=== PATIENT | male | born 1950 | race Caucasian/White ===

== ENCOUNTER 2021-04-18 10:45 | Emergency (ER) | payer MEDICAID, MEDICARE ==
[2021-04-18] MEDS ORDERED: predniSONE 20 MG TABLET PO STA (11:14)
--- NOTE | 2021-04-18 11:21 | ED Physician Documentation ---
PD HPI HEADACHE - Stated complaint Stated Complaint: SEVERE HEADACHE - Chief complaint Chief Complaint: Neuro - Additional information Additional information: Patient is 70-year-old male presenting to the emergency department with report of headache. Endorses for intermittent episodes of stabbing pain behind his left eye that has been ongoing for the last week. Reports has had several episodes of pain, each lasting approximately 30 minutes in length. Denies excessive tearing or lacrimation from the eye. Reports has been using [id number] medications such as aspirin with some symptomatic relief. Denies any fever, neck stiffness, head injury, visual disturbance, focal or lateralizing neurologic symptoms. . Reports a history of migraines in childhood and states that he was diagnosed with cluster headaches when he was much younger but it is been several years since he has been troubled by these issues. States has been using oral and nasal decongestants as well because he was concerned that it could be a sinus infection. Otherwise reports that he is currently asymptomatic Review of Systems Ten Systems: 10 systems reviewed and negative Constitutional: denies: Fever Eyes: denies: Loss of vision, Decreased vision, Discharge, Irritation Ears: denies: Loss of hearing, Ear pain, Tinnitus/ringing, Foreign body Nose: denies: Rhinorrhea / runny nose, Foreign Body Throat: denies: Dental pain / toothache, Oral lesions / sores Cardiac: denies: Chest pain / pressure Respiratory: denies: Dyspnea GI: denies: Abdominal Pain : denies: Dysuria Skin: denies: Rash Musculoskeletal: denies: Neck pain Neurologic: reports: Headache. denies: Generalized weakness, Focal weakness, Numbness, Difficulty speaking, Near syncope, Syncope, Seizure, Confused, Altered mental status, Unresponsive, Head injury Psychiatric: denies: Depressed PD PAST MEDICAL HISTORY - Past Medical History Past Medical History: Yes Cardiovascular: Pulmonary embolism Respiratory: None GI: None : Kidney stones HEENT: None Psych: None Musculoskeletal: None Derm: None - Past Surgical History Past Surgical History: No - Present Medications Home Medications: Ambulatory Orders Medication Instructions Recorded Confirmed ZOLMitriptan [Zolmitriptan] 1 spray NS PRN PRN #1 spray 04/18/21 methylPREDNISolone [Medrol] 4 mg PO DAILY #1 tab 04/18/21 - Allergies Allergies/Adverse Reactions: Allergies Allergy/AdvReac Type Severity Reaction Status Date / Time No Known Drug Allergies Allergy Verified 04/18/21 10:50 - Social History Does the pt smoke?: No Smoking Status: Never smoker Does the pt drink ETOH?: Yes Does the pt have substance abuse?: Yes - Immunizations Immunizations are current?: Yes - POLST Patient has POLST: No PD ED PE NORMAL - Vitals Vital signs reviewed: Yes - General General: Alert and oriented X 3 - HEENT HEENT: Atraumatic, PERRL, EOMI, Ears normal, Moist mucous membranes, Pharynx benign - Neck Neck: No JVD - Cardiac Cardiac: RRR - Respiratory Respiratory: No respiratory distress - Abdomen Abdomen: Normal bowel sounds - Male Male : Deferred - Rectal Rectal: Deferred - Extremities Extremities: No deformity - Neuro Neuro: Alert and oriented X 3 - Psych Psych: Normal mood Results - Vitals Vitals: Vital Signs - 24 hr 04/18/21 04/18/21 10:51 11:46 Temperature 36.5 C Heart Rate 64 80 Respiratory 18 16 Rate Blood Pressure 149/95 H 145/79 H O2 Saturation 99 99 Oxygen O2 Source Room air PD MEDICAL DECISION MAKING - ED course Complexity details: d/w patient ED course: Patient is 70-year-old male presenting to the emergency department with 1 week history of intermittent left-sided headache. Endorses for headache behind his left eye happening intermittently with severe pain lasting approximately 20 to 30 minutes and happening several times a day. Patient did endorse a very distant history of migraine headache disorder and cluster headaches. Reported that he had been using nasal sprays and oral and nasal decongestants at home without relief, initially believing that his symptoms were secondary to a sinus infection. He arrived to the emergency department afebrile, hemodynamically stable and completely asymptomatic. He had a nonfocal nonlateralizing neurologic exam and no sinus tenderness to palpation. The remainder of his HEENT exam was otherwise benign. His presentation is most consistent with recurrent cluster headaches. I did have a long and detailed discussion with the patient about this condition. We discussed a course of prednisone as a p reventative medication as well as intranasal triptans to help abort acute episodes of pain. I also encouraged him to establish himself with a primary care doctor for appropriate follow-up. He verbalized understanding of these things and was agreeable to this plan. Otherwise explicit and clear return precautions were given prior to discharge. Departure - Departure Disposition: Home, Self Care Clinical Impression: Cluster headaches Condition: Fair Follow-Up: Bettina Ramírez MD [Primary Care Provider] - Prescriptions: methylPREDNISolone [Medrol] 4 mg PO DAILY #1 tab ZOLMitriptan [Zolmitriptan] 1 spray NS PRN PRN #1 spray PRN Reason: Headache Comments: For allowing us to care for you today at [facility]. Your prescriptions were sent to [facility]. Is follow-up with Dr. Ramírez as soon as possible. If it anytime you have any new or worsening symptoms please not hesitate to return to the emergency department. Discharge Date/Time: 04/18/21 11:46
[2021-04-18 11:46] VITALS: BP 145/79
== END 2021-04-18 11:46 | disposition home or self-care (01) ==
LOC: ED 10:45
DX: G44.009 Cluster headache syndrome, unspecified, not intractable (principal)
CPT/HCPCS: 99282; 99283; J7512

== ENCOUNTER 2022-07-21 11:22 | Outpatient (CLI) | payer SELFPAY | END 2022-07-21 11:23 | disposition critical access hospital (66) | LOC: EMS 11:22 | DX: R10.13 Epigastric pain (principal); R10.32 Left lower quadrant pain; R11.2 Nausea with vomiting, unspecified | CPT/HCPCS: A0425; A0427 ==

== ENCOUNTER 2022-07-21 11:55 | Emergency (ER) | payer SELFPAY ==
--- NOTE | 2022-07-21 12:04 | ED Physician Documentation ---
History of Present Illness - Stated complaint Stated Complaint: ABD PX - Additonal information Additional information: 71-year-old male is brought to the emergency department for evaluation of colicky and abdominal pain that has been present every morning for the last 3 mornings. Patient reports that he gets up about 6 AM and feels as though he is going to have a bowel movement but does not and instead he gets very nauseated and has dry heaves. Symptoms last about 3 hours before dissipating. They occurred again this morning thus he called 911. At the time of evaluation in the ER he is free of abdominal pain. He is simply requesting to urinate. He denies taking any pertinent medications. No past hospitalizations or surgeries. The patient is quite nimco with the staff at this time insisting that he needs to urinate. Patient denies melena or hematochezia. No history of previous colonoscopy. No fevers. No headaches. No chest pain or shortness of air. He denies night sweats or unintentional weight loss. Denies alcohol use but is a daily cannabis smoker. pt reports to me that if his labs look "okay" he would simply like a nausea medication. He does not want a CT scan. States to me; "what would I do with it anyway. if I have cancer, I won't treat it." Review of Systems Constitutional: denies: Fever, Chills Throat: reports: Reviewed and negative Cardiac: reports: Reviewed and negative Respiratory: reports: Reviewed and negative GI: reports: Nausea. denies: Vomiting, Constipation, Hematemesis, Bloody / jamie k stool : reports: Reviewed and negative Skin: reports: Reviewed and negative Musculoskeletal: reports: Reviewed and negative PD PAST MEDICAL HISTORY - Past Medical History Cardiovascular: Pulmonary embolism Respiratory: None GI: None : Kidney stones HEENT: None Psych: None Musculoskeletal: None Derm: None - Past Surgical History Past Surgical History: No - Present Medications Home Medications: Ambulatory Orders Medication Instructions Recorded Confirmed ZOLMitriptan [Zolmitriptan] 1 spray NS PRN PRN #1 spray 04/18/21 methylPREDNISolone [Medrol] 4 mg PO DAILY #1 tab 04/18/21 Cefpodoxime Proxetil [Vantin] 100 mg PO Q12H #14 tablet 07/21/22 Tamsulosin HCl [Flomax] 0.4 mg PO DAILY #30 cap 07/21/22 - Allergies Allergies/Adverse Reactions: Allergies Allergy/AdvReac Type Severity Reaction Status Date / Time No Known Drug Allergies Allergy Verified 04/18/21 10:50 - Social History Does the pt smoke?: No Smoking Status: Never smoker Does the pt drink ETOH?: Yes Does the pt have substance abuse?: Yes - Immunizations Immunizations are current?: Yes - POLST Patient has POLST: No PD ED PE NORMAL - General General: Alert and oriented X 3, No acute distress, Well developed/nourished - HEENT HEENT: Atraumatic, Moist mucous membranes - Neck Neck: Supple, no meningeal sign, No adenopathy - Cardiac Cardiac: RRR, No murmur, No gallop - Respiratory Respiratory: No respiratory distress, Clear bilaterally - Abdomen Abdomen: Normal bowel sounds, Soft - Back Back: No CVA TTP, No spinal TTP - Derm Derm: Normal color, Warm and dry, No rash - Extremities Extremities: No deformity, No tenderness to palpate, Normal ROM s pain - Neuro Neuro: Alert and oriented X 3, community engagement representative 2-12 intact Eye Opening: Spontaneous Motor: Obeys Commands Verbal: Oriented GCS Score: 15 Results - Vitals Vitals: Vital Signs - 24 hr 07/21/22 12:10 Temperature 36.9 C Heart Rate 59 L Respiratory 18 Rate Blood Pressure 134/83 H O2 Saturation 98 Oxygen O2 Source Room air - Labs Labs: Laboratory Tests 07/21/22 07/21/22 07/21/22 12:07 12:09 12:09 WBC 12.2 H RBC 4.70 Hgb 15.1 Hct 44.7 MCV 95.1 H MCH 32.1 H MCHC 33.8 RDW 13.4 Plt Count 184 MPV 9.7 Neut # (Auto) 10.8 H Lymph # (Auto) 0.[address] [facility] # (Auto) 0.5 Eos # (Auto) 0.0 Baso # (Auto) 0.0 Absolute Nucleated RBC 0.00 Nucleated RBC % 0.0 Sodium 140 Potassium 3.4 L Chloride 109 Carbon Dioxide 24 Anion Gap 7.0 BUN 16 Creatinine 0.9 Estimated GFR (MDRD) 84 L Glucose 121 H Calcium 9.2 Total Bilirubin 0.8 AST 23 ALT 16 Alkaline Phosphatase 45 Total Protein 7.5 Albumin 4.5 Globulin 3.0 Albumin/Globulin Ratio 1.5 Lipase 45 Urine Color BROWN Urine Clarity HAZY Urine pH 6.0 Ur Specific [place] 1.020 Urine Protein 30 H Urine Glucose (UA) NEGATIVE Urine Ketones TRACE Urine Occult Blood LARGE H Urine Nitrite NEGATIVE Urine Bilirubin NEGATIVE Urine Urobilinogen 0.2 (NORMAL) Ur Leukocyte Esterase SMALL H Urine RBC TNTC H Urine WBC 6-10 H Ur Squamous Epith Cells FEW Squamous Urine Bacteria Moderate H Ur Microscopic Review INDICATED Urine Culture Comments INDICATED - Rads (name of study) CT abdpelv Relevant Findings:: Final report received (Objective stone within the proximal right ureter measuring 5 mm. Additional lower pole nonobstructive right nephrolithiasis) PD Medical Decision Making - ED course Complexity details: reviewed results, re-evaluated patient, considered differential, d/w patient, d/w framing consultant ED course: 71-year-old male came to the emergency department via EMS for evaluation of colicky abdominal pain has been present each morning when he wakes up. Typically last about 3 hours and he has some nausea but no vomiting. Denies changes in his bowel habits. Denies urinary symptoms. Admits he has not been to a doctor in quite some time but denies a history of diabetes. He does have a remote history of renal colic many many years ago. On presentation to the emergency department he is alert and very well-appearing. No abdominal tenderness was elicited. CBC and electrolytes shows of very mild leukocytosis with white count of 12.2 thousand. His electrolytes show no acute worrisome abnormalities. His urinalysis however is consistent with acute infection as well as significant hematuria. Given this finding a CT of the abdomen with contrast was completed. As interpreted by the radiologist it does show a 5 mm right proximal ureter stone without findings of obstruction. No findings suggest pyelonephritis. Given the findings of acute cystitis here in the ER I did mention patient 1 g of ceftriaxone. With the findings of proximal ureter stone I also administered a dose of Flomax. Subsequently I did consult with [facility] urologist Dr. rush Who feels the patient is safe for discharge home with outpatient follow-up. He would recommend a week of antibiotics as well as Flomax. I did discuss the laboratory and CT imaging findings with the patient and his friend at the bedside. He will follow-up with a local walk-in clinic to obtain the appropriate referral to urology. Prescriptions for Flomax and Vantin were sent to the [facility] in [place]. The usual emergent return precautions were discussed Departure - Departure Disposition: 01 Home, Self Care Clinical Impression: Right ureteral stone Acute cystitis Qualifiers: Hematuria presence: with hematuria Qualified Code(s): N30.01 - Acute cystitis with hematuria Condition: Stable Record reviewed to determine appropriate education?: Yes Instructions: ED Stone Renal W Colic Follow-Up: [facility] [Provider Group] Prescriptions: Tamsulosin HCl [Flomax] 0.4 mg PO DAILY #30 cap Cefpodoxime Proxetil [Vantin] 100 mg PO Q12H #14 tablet Comments: Pelon you came to the emergency department today because you have been having about 3 days of colicky abdominal pain when you wake up each morning. Today in the emergency department your urine showed a fair amount of blood as well as signs of infection. The rest of your labs did not show any worrisome abnormalities. We did do a CT of your abdomen and do see that you have a 5 mm right ureter stone. This is the area of the ureter as it exits the kidney. I am sending a prescription for medication called Flomax to the [facility] in [place]. Please take this each day. Use it cautiously it may make you somewhat lightheaded and dizzy. The goal of this medication is to help dilate the ureter to allow the stone to pass more easily. Because you do have a urinary tract infection you also need to fill the prescription for the antibiotics and take twice daily as directed for the next week. Please follow closely with a primary care doctor. You should obtain referral to a local urologist. I would recommend [facility] urology depart ment. Any of the local walk-in clinics can assist you with making the referrals. If despite taking these medications you find you are having worsening symptoms, develop any fevers, have suddenly severe or different abdominal pain, have uncontrolled vomiting please return immediately to the ER. In general kidney pain and ureter pain is best treated by alternating doses of ibuprofen with Tylenol. Please take 600 mg of Motrin with food 2-3 times a day or alternate with 500 mg of Tylenol for any discomfort.
[2022-07-21 12:19] LABS: BASOPHILS % (AUTO) 0.2 %; EOSINOPHILS % (AUTO) 0.1 %; HCT - HEMATOCRIT 44.7 % (42.0-52.0); HGB - HEMOGLOBIN 15.1 g/dL (14.0-18.0); LYMPHOCYTES # (AUTO) 0.9 10^3/uL (1.5-3.5); LYMPHOCYTES % (AUTO) 7.5 %; MEAN CORPUSCULAR HEMOGLOBIN 32.1 pg (27.0-31.0); MEAN CORPUSCULAR HGB CONC 33.8 g/dL (32.0-36.0); MEAN CORPUSCULAR VOLUME 95.1 fL (80.0-94.0); MEAN PLATELET VOLUME 9.7 fL (7.4-11.4); MONOCYTES # (AUTO) 0.5 10^3/uL (0.0-1.0); MONOCYTES % (AUTO) 3.8 %; NEUTROPHILS # (AUTO) 10.8 10^3/uL (1.5-6.6); PLT - PLATELET COUNT 184 10^3/uL (130-450); RED CELL DISTRIBUTION WIDTH 13.4 % (12.0-15.0); WHITE BLOOD COUNT 12.2 x10^3/uL (4.8-10.8)
[2022-07-21 12:22] LABS: BILIRUBIN,URINE NEGATIVE (NEGATIVE); GLUCOSE, URINE (UA) NEGATIVE (NEGATIVE); KETONES,URINE (UA) TRACE mg/dL (NEGATIVE); LEUKOCYTE ESTERASE, URINE SMALL (NEGATIVE); NITRITE,URINE NEGATIVE (NEGATIVE); OCCULT BLOOD,URINE LARGE (NEGATIVE); PROTEIN,URINE 30 mg/dL (NEGATIVE); UROBILINOGEN,URINE 0.2 (NORMAL) E.U./dL (NORMAL)
[2022-07-21 12:23] LABS: CLARITY,URINE HAZY (CLEAR)
[2022-07-21 12:28] LABS: ALBUMIN 4.5 g/dL (3.2-5.5); ALBUMIN/GLOBULIN RATIO 1.5 (1.0-2.2); BILIRUBIN,TOTAL 0.8 mg/dL (0.2-1.0); CALCIUM 9.2 mg/dL (8.5-10.3); CREATININE 0.9 mg/dL (0.6-1.2); POTASSIUM 3.4 mmol/L (3.5-5.0); TOTAL PROTEIN 7.5 g/dL (6.7-8.2)
[2022-07-21 12:30] LABS: BACTERIA,URINE Moderate /HPF (None Seen); RBC,URINE TNTC /HPF (0-5); SQUAMOUS EPITHELIAL CELL,UR FEW Squamous (<= Few)
[2022-07-21] MEDS ORDERED: iohexoL-300 100 ML VIAL ONE (12:49)
[2022-07-21] MEDS ORDERED: iohexoL-300 100 ML VIAL IVP ONE (13:20)
[2022-07-21] MEDS ORDERED: LIDOCAINE 1% 2 ML VIAL MC ONE (13:34)
[2022-07-21] MEDS ORDERED: cefTRIAXone 500 MG VIAL IVP STA (13:34)
--- NOTE | 2022-07-21 13:46 | CT Report ---
PROCEDURE: ABDOMEN/PELVIS W INDICATIONS: hematuria; periumbilical pain/cramping CONTRAST: 100ml omni 300 TECHNIQUE: After the administration of IV contrast, 5 mm thick sections acquired from the diaphragms to the symp hysis. 5 mm thick coronal and sagittal reformats were acquired. For radiation dose reduction, the f ollowing was used: automated exposure control, adjustment of mA and/or kV according to patient size. COMPARISON: None. FINDINGS: Image quality: Excellent. ABDOMEN: Lung bases: Lung bases are clear. Heart size is normal. Solid organs: Liver and spleen are normal in size and enhancement. Gallbladder is normal Biliary s ystem is non dilated. Pancreas enhances normally. No adrenal nodules. There is right-sided hydronephrosis with periureteral fat stranding with a an obstructive 5 mm stone in the proximal ureter. Additional obstructing stone within the inferior pole of the kidney measuring 4 mm. Mean density of the stone within the right ureter is 320 Hounsfield units. Peritoneum and bowel: Bowel loops demonstrate normal wall thickness and caliber. No free fluid or a ir. Scattered colonic diverticula. Nodes and vessels: No retroperitoneal or mesenteric adenopathy by size criteria. Aorta and inferior vena cava are normal in size. Miscellaneous: No ventral hernias. PELVIS: Genitourinary: Bladder wall thickness is normal. Coarse prostatic calcifications. Miscellaneous: No inguinal hernias or adenopathy. Bones: No suspicious bony lesions. No vertebral body compression fractures. Osteoarthritic degener ative changes. IMPRESSION: 1.Objective stone within the proximal right ureter measuring 5 mm. 2.Additional lower pole nonobstructive right nephrolithiasis. Reviewed by: Juan Kim MD on 07/21/2022 12:45 PM AKDT Approved by: Juan Kim MD on 07/21/2022 12:45 PM AKDT Station ID: [id number]
[2022-07-21] MEDS ORDERED: cefTRIAXone 1 GM VIAL IVP STA (13:47)
[2022-07-21] MEDS ORDERED: TAMSULOSIN 0.4 MG CAPSULE PO STA (14:05)
[2022-07-21 14:38] VITALS: BP 147/107
== END 2022-07-21 14:38 | disposition home or self-care (01) ==
LOC: EDUNIT# → ED 11:55
DX: N20.1 Calculus of ureter (principal); N30.01 Acute cystitis with hematuria
CPT/HCPCS: 36415; 74177; 80053; 81001; 83690; 85025; 87086; 96374; 99284; A9270; Q9967; 81003

== ENCOUNTER 2022-08-04 06:54 | Emergency (ER) | payer SELFPAY ==
--- NOTE | 2022-08-04 07:07 | ED Physician Documentation ---
PD HPI ABD PAIN - Stated complaint Stated Complaint: SEVERE ABD PX, SHAKES, VOMIT - Chief complaint Chief Complaint: Abd Pain - History obtained from History obtained from: Patient - History of Present Illness Timing - onset: How many weeks ago (2) Timing - duration: Weeks (2) Timing - details: Abrupt onset, Still present (had been milder but became worse again last night /this morning.), Waxing and waning Quality: Cramping, Aching, Pain Location: RLQ Radiation: Right flank Improved by: No: Laying still, Position Worsened by: No: Moving, Breathing, Position Associated symptoms: Nausea, Vomiting, Loss of appetite. No: Fever, Diarrhea, Constipation, Dysuria Similar symptoms before: Diagnosis (seen 2 weeks ago for similar and Dx with right proximal urteral stone 5 mm. Treated with tasmulosin and nsaids. Had possible UTI with it as well. rx with antibiotic too.) Recently seen: Emergency Dept Review of Systems Constitutional: denies: Fever, Chills GI: reports: Abdominal Pain, Nausea, Vomiting (when pain is bad like this morning.). denies: Constipation, Diarrhea : denies: Dysuria, Frequency Musculoskeletal: reports: Back pain PD PAST MEDICAL HISTORY - Past Medical History Cardiovascular: Pulmonary embolism Respiratory: None GI: None : Kidney stones HEENT: None Psych: None Musculoskeletal: None Derm: None - Past Surgical History Past Surgical History: No - Present Medications Home Medications: Ambulatory Orders Medication Instructions Recorded Confirmed ZOLMitriptan [Zolmitriptan] 1 spray NS PRN PRN #1 spray 04/18/21 methylPREDNISolone [Medrol] 4 mg PO DAILY #1 tab 04/18/21 Cefpodoxime Proxetil [Vantin] 100 mg PO Q12H #14 tablet 07/21/22 Tamsulosin HCl [Flomax] 0.4 mg PO DAILY #30 cap 07/21/22 Meloxicam [Mobic] 7.5 mg PO BID 10 Days #20 tablet 08/04/22 Ondansetron Odt [Zofran] 4 mg TL Q6H PRN #10 tablet 08/04/22 Oxycodone HCl/Acetaminophen 1 each PO Q6H PRN #20 tablet 08/04/22 [Percocet 5-325 mg Tablet] Oxycodone HCl/Acetaminophen 1 each PO Q6H PRN #20 tablet 08/04/22 [Percocet 5-325 mg Tablet] Tamsulosin [Flomax] 0.4 mg PO DAILY #15 cap 08/04/22 - Allergies Allergies/Adverse Reactions: Allergies Allergy/AdvReac Type Severity Reaction Status Date / Time No Known Drug Allergies Allergy Verified 04/18/21 10:50 - Social History Does the pt smoke?: No Smoking Status: Never smoker Does the pt drink ETOH?: Yes Does the pt have substance abuse?: Yes - Immunizations Immunizations are current?: Yes - POLST Patient has POLST: No PD ED PE NORMAL - Vitals Vital signs reviewed: Yes - General General: Alert and oriented X 3, Well developed/nourished, Other (appears in significant pain. ) - Cardiac Cardiac: RRR, No murmur - Respiratory Respiratory: Clear bilaterally - Abdomen Abdomen: Normal bowel sounds, Soft, Non tender, Non distended - Male Male : Deferred - Back Back: Other (moderate right cva tenderness. ) - Derm Derm: Normal color, Warm and dry - Extremities Extremities: Normal ROM s pain, No edema, No calf tenderness / cord - Neuro Neuro: No motor deficit, No sensory deficit Results - Vitals Vitals: Vital Signs - 24 hr 08/04/22 08/04/22 08/04/22 06:59 07:34 08:45 Temperature 36.8 C Heart Rate 77 56 L 60 Respiratory 18 11 L 16 Rate Blood Pressure 151/70 H 139/80 H 133/82 H O2 Saturation 98 97 97 08/04/22 09:36 Temperature 36.7 C Heart Rate 78 Respiratory 16 Rate Blood Pressure 136/77 H O2 Saturation 100 Oxygen O2 Source Room air - Labs Labs: Laboratory Tests 08/04/22 08/04/22 08/04/22 07:15 07:15 08:15 WBC 15.0 H RBC 4.79 Hgb 15.8 Hct 45.5 MCV 95.0 H MCH 33.0 H MCHC 34.7 RDW 13.9 Plt Count 217 MPV 9.8 Neut # (Auto) 12.8 H Lymph # (Auto) 1.3 L [place] # (Auto) 0.8 Eos # (Auto) 0.0 Baso # (Auto) 0.1 Absolute Nucleated RBC 0.00 Nucleated RBC % 0.0 Sodium 140 Potassium 4.0 Chloride 109 Carbon Dioxide 20 L Anion Gap 11.0 BUN 20 Creatinine 1.3 H Estimated GFR (MDRD) 55 L Glucose 121 H Calcium 10.2 Total Bilirubin 1.0 AST 29 ALT 15 Alkaline Phosphatase 47 Total Protein 7.7 Albumin 4.6 Globulin 3.1 Albumin/Globulin Ratio 1.5 Lipase 36 Urine Color YELLOW Urine Clarity CLEAR Urine pH 5.0 Ur Specific [place] >=1.030 H Urine Protein 30 H Urine Glucose (UA) NEGATIVE Urine Ketones 15 H Urine Occult Blood LARGE H Urine Nitrite NEGATIVE Urine Bilirubin NEGATIVE Urine Urobilinogen 0.2 (NORMAL) Ur Leukocyte Esterase NEGATIVE Urine RBC 11-25 H Urine WBC 6-10 H Ur Squamous Epith Cells RARE Squamous Urine Crystals 11-25 Ca Oxalate Urine Bacteria None Seen Ur Microscopic Review INDICATED Urine Culture Comments NOT INDICATED - Rads (name of study) abd/pelvic CT Relevant Findings:: Prelim report reviewed, EMP independent interpretation of test (the 5 mmstone has moved few cms down ureter. still midway. Some hydronephrosis. ), See rad report PD Medical Decision Making - ED course Complexity details: reviewed old records (prior ER visit. I looked at the culture result from urine at last visit and was mixed dami, so was not a true uTI. ), reviewed results, considered differential, d/w patient Drug Therapy Requiring Monitoring for Toxicity: given IV toradol and Dilaudid 1 mg, with good improvement in pain. He is much more comfortable and no untoward effects. ED course: has had some pain with right abd/flank since prior visit. was some better while on meds. Had increased pain last night/today, so stone likely moving more. Given the interval of time from last visit, with persisting symptoms, shared decision to repeat ct to evaluate progress. Departure - Departure Disposition: 01 Home, Self Care Clinical Impression: Intractable abdominal pain, Ureterolithiasis Condition: Stable Instructions: ED Stone Renal W Colic Follow-Up: Meryl Meade MD [Provider Admit Priv/Credential] - Prescriptions: Tamsulosin [Flomax] 0.4 mg PO DAILY #15 cap Meloxicam [Mobic] 7.5 mg PO BID 10 Days #20 tablet Oxycodone HCl/Acetaminophen [Percocet 5-325 mg Tablet] 1 each PO Q6H PRN #20 tablet PRN Reason: pain Oxycodone HCl/Acetaminophen [Percocet 5-325 mg Tablet] 1 each PO Q6H PRN #20 tablet PRN Reason: pain Ondansetron Odt [Zofran] 4 mg TL Q6H PRN #10 tablet PRN Reason: Nausea / Vomiting Comments: Your stone has moved a little bit from the upper ureter to the mid ureter. However its not making very problems progress. Hopefully will improve with a combination of the tamsulosin (Flomax) in combination with an anti-inflammatory to decrease ureteral edema. We can also help with ondansetron for nausea and try Tylenol every 4-6 hours if needed for pain or oxycodone/acetaminophen if needed for worse pain. I sent prescriptions to your preferred pharmacy, [facility] in [place]. It now probably makes sense to look at a follow-up with urology in case this needs intervention in order to help the progress. I provided the name of urologist at [facility]. It does not have to be this particular urologist as there are several in the group and whoever could see you soonest. Call tomorrow to make an appointment. Typically this will be a week or so in the follow-up as they do try to get focal with kidney stones in sooner than routine visits. We will see if you are able to pass the stone in the meantime. Stay well-hydrated. You do not need to over hydrate per se. Return to the ER if severe again. The mild urinary tract infection seen previously has cleared up so no need for any further antibiotics. I would suggest a stool softener such as docusate daily. You can add in a mild laxative if needed periodically for constipation. My narcotic instructions I am prescribing a short course of narcotic pain medication for you. These are potentially dangerous and addictive medications that should be used carefully. These medications may constipate you. Take an [id number] stool softener such as docusate twice daily with plenty of water while taking these medications. If you go 24 hours without a bowel movement, take [id number] MiraLAX, per package instructions. Do not drink or drive while taking these medications. If you received narcotic or sedating medications while in the emergency department do not drive for 24 hours. Store this medication in a safe, secure place and out of reach of children. It is a violation of federal law to give or sell this medication to another person or to use in a manner other than prescribed. The ED will not refill narcotic prescriptions, including prescriptions lost or stolen. You can dispose of unwanted medications at the [facility]'s office or at several pharmacies such as [facility]. Discharge Date/Time: 08/04/22 09:44
[2022-08-04] MEDS ORDERED: HYDROmorphone 1 MG/ML CARPUJECT IVP STA ×2 (07:15→08:53)
[2022-08-04] MEDS ORDERED: SODIUM CHLORIDE 0.9% 1,000 ML IV STA (07:15)
[2022-08-04] MEDS ORDERED: KETOROLAC 15 MG/ML VIAL IVP STA (07:15)
[2022-08-04] MEDS ORDERED: ONDANSETRON 4 MG/2 ML VIAL IVP STA (07:15)
[2022-08-04 07:22] LABS: BASOPHILS # (AUTO) 0.1 10^3/uL (0.0-0.1); BASOPHILS % (AUTO) 0.3 %; EOSINOPHILS % (AUTO) 0.1 %; HCT - HEMATOCRIT 45.5 % (42.0-52.0); HGB - HEMOGLOBIN 15.8 g/dL (14.0-18.0); LYMPHOCYTES # (AUTO) 1.3 10^3/uL (1.5-3.5); LYMPHOCYTES % (AUTO) 8.6 %; MEAN CORPUSCULAR HGB CONC 34.7 g/dL (32.0-36.0); MEAN PLATELET VOLUME 9.8 fL (7.4-11.4); MONOCYTES # (AUTO) 0.8 10^3/uL (0.0-1.0); MONOCYTES % (AUTO) 5.5 %; NEUTROPHILS # (AUTO) 12.8 10^3/uL (1.5-6.6); PLT - PLATELET COUNT 217 10^3/uL (130-450); RED BLOOD COUNT 4.79 10^6/uL (4.70-6.10); RED CELL DISTRIBUTION WIDTH 13.9 % (12.0-15.0)
--- OUTSIDE RECORDS SUMMARY | 2022-08-04 07:50 | EXTERNAL MEDICAL SUMMARY RPT | Continuity of Care Document ---
:1950 Author Organization [facility] Address [address] [place] [address] Phone Care Team Providers Name Role Phone Unavailable Unavailable Unavailable Fly Manager Nuclear, Maliha Unavailable Unavailable Allergies No information. Encounters No information. Functional Status No information. Immunizations No information. Medications No information. Problems date description facility 2022-07-21 00:00 Alcohol abuse Walk-In [facility] Prim yandel Care & Ancillary Services [facility] 2022-07-21 00:00 Cataract Walk-In Clinic Prim yandel Care & Anc[facility] Services [facility] 2022-07-21 00:00 Alcohol abuse, unspecified Walk-In Cli himanshu Primary Care & drinking behavior Ancillary Services [facility] 2022-07-21 00:00 Cannabis abuse, unspecified use Walk-I n Clinic Primary Care & Ancillary Services [facility] 2022-07-21 00:00 Cannabis abuse Walk-In Clinic Prim yandel Care & Ancillary Services [facility] 2022-07-21 00:00 Other pulmonary embolism and Walk-In C linic Primary Care & infarction Ancillary Services [facility] 2022-07-21 00:00 Allergic rhinitis, cause Walk-In Clini c Primary Care & unspecified Ancillary Services [facility] 2022-07-21 00:00 Pulmonary embolism Walk-In Clinic Prim yandel Care & Ancillary Services [facility] 2022-07-21 00:00 Allergic rhinitis Walk-In Clinic Prim yandel Care & Anc[facility] Services [facility] 2022-07-21 00:00 Alcohol abuse, uncomplicated Walk-In C linic Primary Care & Ancillary Services [facility] 2022-07-21 00:00 Cannabis abuse, uncomplicated Walk-In Clinic Primary Care & Ancillary Services [facility] 2022-07-21 00:00 Unspecified cataract Walk-In Clinic Pr imary Care & Ancillary Services [facility] 2022-07-21 00:00 Other pulmonary embolism without Walk- In Clinic Primary Care & acute cor pulmonale Ancillary Services [facility] 2022-07-21 00:00 Allergic rhinitis, unspecified Walk-In Clinic Primary Care & Ancillary Services [facility] 2022-07-21 00:00 Family history of malignant Walk-In Cl inic Primary Care & neoplasm of trachea, bronchus, and Ancil nani Services [facility] 2022-07-21 00:00 Family history of malignant Walk-In Cl inic Primary Care & neoplasm of trachea, bronchus and Ancill yandel Services [facility] 2022-07-22 00:00 Alcohol abuse Walk-In Clinic Prim yandel Care & Ancillary Services [facility] 2022-07-22 00:00 Cataract Walk-In Clinic Prim yandel Care & Ancillary Services [facility] 2022-07-22 00:00 Alcohol abuse, unspecified Walk-In Cli himanshu Primary Care & drinking behavior Ancillary Services [facility] 2022-07-22 00:00 Cannabis abuse, unspecified use Walk-I n Clinic Primary Care & Ancillary Services [facility] 2022-07-22 00:00 Cannabis abuse Walk-In Clinic Prim yandel Care & Ancillary Services [facility] 2022-07-22 00:00 Other pulmonary embolism and Walk-In C [facility] Primary Care & infarction Ancillary Services [facility] 2022-07-22 00:00 Allergic rhinitis, cause Walk[facility]In Clini c Primary Care & unspecified Ancillary Services [facility] 2022-07-22 00:00 Pulmonary embolism Walk-In Clinic Prim yandel Care & Anc[facility] Services [facility] 2022-07-22 00:00 Allergic rhinitis Walk-In Clinic Prim yandel Care & Ancillary Services [facility] 2022-07-22 00:00 Alcohol abuse, uncomplicated Walk-In C [facility] Primary Care & Ancillary Services [facility] 2022-07-22 00:00 Cannabis abuse, uncomplicated Walk-In Clinic Primary Care & Ancillary Services [facility] 2022-07-22 00:00 Unspecified cataract Walk-In Clinic Pr ary Care & Ancillary Services [facility] 2022-07-22 00:00 Other pulmonary embolism without Walk- In Clinic Primary Care & acute cor pulmonale Ancillary Services [facility] 2022-07-22 00:00 Allergic rhinitis, unspecified Walk-In Clinic Primary Care & Ancillary Services [facility] 2022-07-22 00:00 Family history of malignant Walk-In Cl inic Primary Care & neoplasm of trachea, bronchus, and Ancil nan[facility] Services [facility] 2022-07-22 00:00 Family history of malignant Walk-In Cl inic Primary Care & neoplasm of trachea, bronchus and [facility]ill [facility] Procedures No information. Results/Labs test date author facility value unit interpret ation Result panel 1 (unknown) (no date) (unknown) Walk-In (no value) (units (unk nown) Clinic Primary unknown) [facility] Result panel 2 (unknown) (no date) (unknown) Walk-In (no value) (units (unk nown) Clinic [facility] Result panel 3 (unknown) (no date) (unknown) Walk-In (no value) (units ([facility] nown) Clinic [facility] Result panel 4 (unknown) (no date) (unknown) Walk-In (no value) (units (unk nown) Clinic Primary unknown) [facility] Result panel 5 (unknown) (no date) (unknown) Walk-In (no value) (units (unk nown) Clinic Primary unknown) [facility] Result panel 6 (unknown) (no date) (unknown) Walk-In (no value) (units (unk nown) Clinic Primary unknown) [facility] Result panel 7 (unknown) (no date) (unknown) Walk-In (no value) (units (unk nown) Clinic Primary unknown) [facility] Result panel 8 (unknown) (no date) (unknown) Walk-In (no value) (units (unk nown) Clinic Primary unknown) [facility] Result panel 9 (unknown) (no date) (unknown) Walk-In (no value) (units (unk nown) Clinic Primary unknown) [facility] Result panel 10 (unknown) (no date) (unknown) Walk-In (no value) (units (unk nown) Clinic Primary unknown) [facility] Result panel 11 (unknown) (no date) (unknown) Walk-In (no value) (units (unk nown) Clinic Primary unknown) [facility] Result panel 12 (unknown) (no date) (unknown) Walk-In (no value) (units (unk nown) Clinic Primary unknown[facility] Result panel 13 (unknown) (no date) (unknown) Walk-In (no value) (units (unk nown) Clinic Primary unknown) [facility] Result panel 14 (unknown) (no date) (unknown) Walk-In (no value) (units (unk nown) Clinic Primary unknown) [facility] Result panel 15 (unknown) (no date) (unknown) Walk-In (no value) (units (unk nown) Clinic Primary unknown) [facility] Result panel 16 (unknown) (no date) (unknown) Walk-In (no value) (units (unk nown) Clinic Primary unknown) [facility] Result panel 17 (unknown) (no date) (unknown) Walk-In (no value) (units (unk nown) Clinic Primary unknown) [facility] Result panel 18 (unknown) (no date) (unknown) Walk-In (no value) (units (unk nown) Clinic Primary unknown) [facility] Result panel 19 (unknown) (no date) (unknown) Walk-In (no value) (units (unk nown) Clinic Primary unknown) [facility] Result panel 20 (unknown) (no date) (unknown) Walk-In (no value) (units (unk nown) Clinic Primary unknown) [facility] Result panel 21 (unknown) (no date) (unknown) Walk-In (no value) (units (unk nown) Clinic Primary unknown) [facility] Result panel 22 (unknown) (no date) (unknown) Walk-In (no value) (units (unk nown) Clinic Primary unknown[facility] Result panel 23 (unknown) (no date) (unknown) Walk-In (no value) (units (unk nown) Clinic Primary unknown[facility] Result panel 24 (unknown) (no date) (unknown) Walk-In (no value) (units (unk nown) Clinic [facility] unknown[facility] Result panel 25 (unknown) (no date) (unknown) Walk-In (no value) (units (unk nown) Clinic Primary unknown[facility] Result panel 26 (unknown) (no date) (unknown) Walk-In (no value) (units (unk nown) [facility] unknown[facility] Result panel 27 (unknown) (no date) (unknown) Walk-In (no value) (units (unk nown) [facility] unknown[facility] Result panel 28 (unknown) (no date) (unknown) Walk-In (no value) (units (unk nown) Clinic Primary unknown) [facility] Result panel 29 (unknown) (no date) (unknown) Walk-In (no value) (units (unk nown) Clinic Primary unknown) [facility] Result panel 30 (unknown) (no date) (unknown) Walk-In (no value) (units (unk nown) [facility] Primary unknown) [facility] Result panel 31 (unknown) (no date) (unknown) Walk-In (no value) (units (unk nown) Clinic [facility] unknown[facility] Result panel 32 (unknown) (no date) (unknown) Walk-In (no value) (units (unk nown) Clinic Primary unknown[facility] Result panel 33 (unknown) (no date) (unknown) Walk-In (no value) (units (unk nown) [facility] Primary unknown[facility] Result panel 34 (unknown) (no date) (unknown) Walk-In (no value) (units (unk nown) Clinic Primary unknown) [facility] Result panel 35 (unknown) (no date) (unknown) Walk-In (no value) (units (unk nown) Clinic Primary unknown) [facility] Result panel 36 (unknown) (no date) (unknown) Walk-In (no value) (units (unk nown) [facility] Primary unknown[facility] Result panel 37 (unknown) (no date) (unknown) Walk-In (no value) (units (unk nown) [facility] unknown[facility] Result panel 38 (unknown) (no date) (unknown) Walk-In (no value) (units (unk nown) [facility] unknown[facility] Result panel 39 (unknown) (no date) (unknown) Walk-In (no value) (units (unk nown) [facility] unknown[facility] Result panel 40 (unknown) (no date) (unknown) Walk-In (no value) (units (unk nown) [facility] Primary unknown[facility] Result panel 41 (unknown) (no date) (unknown) Walk-In (no value) (units (unk nown) [facility] Primary unknown[facility] Result panel 42 (unknown) (no date) (unknown) Walk-In (no value) (units (unk nown) [facility] Primary unknown[facility] Result panel 43 (unknown) (no date) (unknown) Walk-In (no value) (units (unk nown) [facility] Primary unknown) [facility] Result panel 44 (unknown) (no date) (unknown) Walk-In (no value) (units (unk nown) [facility] Primary unknown[facility] Result panel 45 (unknown) (no date) (unknown) Walk-In (no value) (units (unk nown) [facility] Primary unknown[facility] Result panel 46 (unknown) (no date) (unknown) Walk-In (no value) (units (unk nown) [facility] unknown[facility] Result panel 47 (unknown) (no date) (unknown) Walk-In (no value) (units (unk nown) [facility] unknown[facility] Result panel 48 (unknown) (no date) (unknown) Walk-In (no value) (units (unk nown) [facility] unknown[facility] Result panel 49 (unknown) (no date) (unknown) Walk-In (no value) (units (unk nown) [facility] unknown[facility] Result panel 50 (unknown) (no date) (unknown) Walk-In (no value) (units (unk nown) [facility] unknown[facility] Result panel 51 (unknown) (no date) (unknown) Walk-In (no value) (units (unk nown) [facility] unknown[facility] Result panel 52 (unknown) (no date) (unknown) Walk-In (no value) (units (unk nown) [facility] unknown[facility] Result panel 53 (unknown) (no date) (unknown) Walk-In (no value) (units (unk nown) [facility] unknown[facility] Result panel 54 (unknown) (no date) (unknown) Walk-In (no value) (units (unk nown) [facility] Primary unknown[facility] Result panel 55 (unknown) (no date) (unknown) Walk-In (no value) (units (unk nown) [facility] Primary unknown[facility] Result panel 56 (unknown) (no date) (unknown) Walk-In (no value) (units (unk nown) [facility] Primary unknown[facility] Result panel 57 (unknown) (no date) (unknown) Walk-In (no value) (units (unk nown) [facility] unknown[facility] Result panel 58 (unknown) (no date) (unknown) Walk-In (no value) (units (unk nown) [facility] unknown[facility] Result panel 59 (unknown) (no date) (unknown) Walk-In (no value) (units (unk nown) [facility] unknown[facility] Result panel 60 (unknown) (no date) (unknown) Walk-In (no value) (units (unk nown) [facility] unknown[facility] Result panel 61 (unknown) (no date) (unknown) Walk-In (no value) (units (unk nown) [facility] unknown[facility] Result panel 62 (unknown) (no date) (unknown) Walk-In (no value) (units (unk nown) [facility] unknown[facility] Result panel 63 (unknown) (no date) (unknown) Walk-In (no value) (units (unk nown) [facility] unknown[facility] Result panel 64 (unknown) (no date) (unknown) Walk-In (no value) (units (unk nown) [facility] unknown[facility] Result panel 65 (unknown) (no date) (unknown) Walk-In (no value) (units (unk nown) [facility] unknown[facility] Result panel 66 (unknown) (no date) (unknown) Walk-In (no value) (units (unk nown) [facility] unknown[facility] Result panel 67 (unknown) (no date) (unknown) Walk-In (no value) (units (unk nown) [facility] unknown[facility] Result panel 68 (unknown) (no date) (unknown) Walk-In (no value) (units (unk nown) [facility] unknown[facility] Result panel 69 (unknown) (no date) (unknown) Walk-In (no value) (units (unk nown) [facility] Primary unknown[facility] Result panel 70 (unknown) (no date) (unknown) Walk-In (no value) (units (unk nown) [facility] Primary unknown[facility] Result panel 71 (unknown) (no date) (unknown) Walk-In (no value) (units (unk nown) [facility] Primary unknown[facility] Result panel 72 (unknown) (no date) (unknown) Walk-In (no value) (units (unk nown) [facility] Primary unknown[facility] Result panel 73 (unknown) (no date) (unknown) Walk-In (no value) (units (unk nown) [facility] Primary unknown[facility] Result panel 74 (unknown) (no date) (unknown) Walk-In (no value) (units (unk nown) [facility] Primary unknown[facility] Result panel 75 (unknown) (no date) (unknown) Walk-In (no value) (units (unk nown) [facility] Primary unknown[facility] Result panel 76 (unknown) (no date) (unknown) Walk-In (no value) (units (unk nown) [facility] Primary unknown[facility] Result panel 77 (unknown) (no date) (unknown) Walk-In (no value) (units (unk nown) [facility] Primary unknown[facility] Result panel 78 (unknown) (no date) (unknown) Walk-In (no value) (units (unk nown) [facility] unknown[facility] Result panel 79 (unknown) (no date) (unknown) Walk-In (no value) (units (unk nown) [facility] Primary unknown[facility] Result panel 80 (unknown) (no date) (unknown) Walk-In (no value) (units (unk nown) [facility] Primary unknown[facility] Result panel 81 (unknown) (no date) (unknown) Walk-In (no value) (units (unk nown) [facility] unknown[facility] Result panel 82 (unknown) (no date) (unknown) Walk-In (no value) (units (unk nown) [facility] unknown[facility] Result panel 83 (unknown) (no date) (unknown) Walk-In (no value) (units (unk nown) [facility] unknown[facility] Result panel 84 (unknown) (no date) (unknown) Walk-In (no value) (units (unk nown) [facility] Primary unknown[facility] Result panel 85 (unknown) (no date) (unknown) Walk-In (no value) (units (unk nown) [facility] Primary unknown[facility] Result panel 86 (unknown) (no date) (unknown) Walk-In (no value) (units (unk nown) [facility] unknown[facility] Result panel 87 (unknown) (no date) (unknown) Walk-In (no value) (units (unk nown) [facility] unknown[facility] Result panel 88 (unknown) (no date) (unknown) Walk-In (no value) (units (unk nown) [facility] unknown[facility] Result panel 89 (unknown) (no date) (unknown) Walk-In (no value) (units (unk nown) [facility] Primary unknown[facility] Result panel 90 (unknown) (no date) (unknown) Walk-In (no value) (units (unk nown) [facility] Primary unknown[facility] Result panel 91 (unknown) (no date) (unknown) Walk-In (no value) (units (unk nown) [facility] Primary unknown[facility] Result panel 92 (unknown) (no date) (unknown) Walk-In (no value) (units (unk nown) [facility] Primary unknown[facility] Result panel 93 (unknown) (no date) (unknown) Walk-In (no value) (units (unk nown) [facility] Primary unknown[facility] Result panel 94 (unknown) (no date) (unknown) Walk-In (no value) (units (unk nown) [facility] unknown[facility] Result panel 95 (unknown) (no date) (unknown) Walk-In (no value) (units (unk nown) [facility] unknown[facility] Result panel 96 (unknown) (no date) (unknown) Walk-In (no value) (units (unk nown) [facility] unknown[facility] Result panel 97 (unknown) (no date) (unknown) Walk-In (no value) (units (unk nown) [facility] unknown[facility] Result panel 98 (unknown) (no date) (unknown) Walk-In (no value) (units (unk nown) [facility] unknown[facility] Result panel 99 (unknown) (no date) (unknown) Walk-In (no value) (units (unk nown) [facility] Result panel 100 (unknown) (no date) (unknown) Walk-In (no value) (units (unk nown) [facility] Result panel 101 (unknown) (no date) (unknown) Walk-In (no value) (units (unk nown) [facility] Result panel 102 (unknown) (no date) (unknown) Walk-In (no value) (units (unk nown) [facility] unknown[facility] Result panel 103 (unknown) (no date) (unknown) Walk-In (no value) (units (unk nown) [facility] unknown[facility] Result panel 104 (unknown) (no date) (unknown) Walk-In (no value) (units (unk nown) [facility] unknown[facility] Result panel 105 (unknown) (no date) (unknown) Walk-In (no value) (units (unk nown) [facility] unknown[facility] Result panel 106 (unknown) (no date) (unknown) Walk-In (no value) (units (unk nown) [facility] unknown[facility] Result panel 107 (unknown) (no date) (unknown) Walk-In (no value) (units (unk nown) [facility] unknown[facility] Result panel 108 (unknown) (no date) (unknown) Walk-In (no value) (units (unk nown) [facility] unknown[facility] Result panel 109 (unknown) (no date) (unknown) Walk-In (no value) (units (unk nown) [facility] unknown[facility] Result panel 110 (unknown) (no date) (unknown) Walk-In (no value) (units (unk nown) Clinic [facility] unknown[facility] Result panel 111 (unknown) (no date) (unknown) Walk-In (no value) (units (unk nown) Clinic [facility] unknown[facility] Result panel 112 (unknown) (no date) (unknown) Walk-In (no value) (units (unk nown) [facility] unknown[facility] Result panel 113 (unknown) (no date) (unknown) Walk-In (no value) (units (unk nown) Clinic [facility] unknown[facility] Result panel 114 (unknown) (no date) (unknown) Walk-In (no value) (units (unk nown) [facility] unknown) [facility] Result panel 115 (unknown) (no date) (unknown) Walk-In (no value) (units (unk nown) [facility] unknown[facility] Result panel 116 (unknown) (no date) (unknown) Walk-In (no value) (units (unk nown) [facility] unknown[facility] Result panel 117 (unknown) (no date) (unknown) Walk-In (no value) (units (unk nown) [facility] unknown[facility] Result panel 118 (unknown) (no date) (unknown) Walk-In (no value) (units (unk nown) [facility] unknown[facility] Result panel 119 (unknown) (no date) (unknown) Walk-In (no value) (units (unk nown) Clinic Primary unknown[facility] Result panel 120 (unknown) (no date) (unknown) Walk-In (no value) (units (unk nown) [facility] unknown) [facility] Result panel 121 (unknown) (no date) (unknown) Walk-In (no value) (units (unk nown) [facility] unknown) [facility] Result panel 122 (unknown) (no date) (unknown) Walk-In (no value) (units (unk nown) [facility] unknown[facility] Result panel 123 (unknown) (no date) (unknown) Walk-In (no value) (units (unk nown) [facility] unknown[facility] Result panel 124 (unknown) (no date) (unknown) Walk-In (no value) (units (unk nown) [facility] unknown[facility] Result panel 125 (unknown) (no date) (unknown) Walk-In (no value) (units (unk nown) [facility] unknown[facility] Result panel 126 (unknown) (no date) (unknown) Walk-In (no value) (units (unk nown) [facility] Primary unknown) [facility] Result panel 127 (unknown) (no date) (unknown) Walk-In (no value) (units (unk nown) Clinic Primary unknown) [facility] Result panel 128 (unknown) (no date) (unknown) Walk-In (no value) (units (unk nown) [facility] unknown[facility] Result panel 129 (unknown) (no date) (unknown) Walk-In (no value) (units (unk nown) [facility] Primary unknown[facility] Result panel 130 (unknown) (no date) (unknown) Walk-In (no value) (units (unk nown) [facility] Result panel 131 (unknown) (no date) (unknown) Walk-In (no value) (units (unk nown) [facility] unknown[facility] Result panel 132 (unknown) (no date) (unknown) Walk-In (no value) (units (unk nown) [facility] Result panel 133 (unknown) (no date) (unknown) Walk-In (no value) (units (unk nown) [facility] Result panel 134 (unknown) (no date) (unknown) Walk-In (no value) (units (unk nown) [facility] Result panel 135 (unknown) (no date) (unknown) Walk-In (no value) (units (unk nown) [facility] unknown[facility] Result panel 136 (unknown) (no date) (unknown) Walk-In (no value) (units (unk nown) [facility] unknown[facility] Result panel 137 (unknown) (no date) (unknown) Walk-In (no value) (units (unk nown) [facility] unknown[facility] Result panel 138 (unknown) (no date) (unknown) Walk-In (no value) (units (unk nown) Clinic [facility] unknown) [facility] Result panel 139 (unknown) (no date) (unknown) Walk-In (no value) (units (unk nown) Clinic Primary unknown) [facility] Result panel 140 (unknown) (no date) (unknown) Walk-In (no value) (units (unk nown) Clinic Primary unknown) [facility] Result panel 141 (unknown) (no date) (unknown) [facility] (no value) [facility] Result panel 142 (unknown) (no date) (unknown) [facility] (no value) [facility] Result panel 143 (unknown) (no date) (unknown) [facility] (no value) [facility] Result panel 144 (unknown) (no date) (unknown) [facility] (no value) [facility] Result panel 145 (unknown) (no date) (unknown) [facility] (no value) [facility] Result panel 146 (unknown) (no date) (unknown) [facility] (no value) [facility] Result panel 147 (unknown) (no date) (unknown) [facility] (no value) [facility] Result panel 148 (unknown) (no date) (unknown) [facility] (no value) [facility] Result panel 149 (unknown) (no date) (unknown) [facility] (no value) [facility] Result panel 150 (unknown) (no date) (unknown) [facility] (no value) [facility] Result panel 151 (unknown) (no date) (unknown) [facility] (no value) [facility] Result panel 152 (unknown) (no date) (unknown) [facility] (no value) [facility] Result panel 153 (unknown) (no date) (unknown) [facility] (no value) [facility] Result panel 154 (unknown) (no date) (unknown) Walk-[facility] (no value) [facility] Result panel 155 (unknown) (no date) (unknown) [facility] (no value) [facility] Result panel 156 (unknown) (no date) (unknown) [facility] (no value) [facility] Result panel 157 (unknown) (no date) (unknown) [facility] (no value) [facility] Result panel 158 (unknown) (no date) (unknown) [facility] (no value) [facility] Result panel 159 (unknown) (no date) (unknown) [facility] (no value) [facility] Result panel 160 (unknown) (no date) (unknown) [facility] (no value) [facility] Result panel 161 (unknown) (no date) (unknown) [facility] (no value) [facility] Result panel 162 (unknown) (no date) (unknown) [facility] (no value) [facility] Result panel 163 (unknown) (no date) (unknown) [facility] (no value) [facility] Result panel 164 (unknown) (no date) (unknown) [facility] (no value) [facility] Result panel 165 (unknown) (no date) (unknown) [facility] (no value) [facility] Result panel 166 (unknown) (no date) (unknown) [facility] (no value) [facility] Result panel 167 (unknown) (no date) (unknown) [facility] (no value) [facility] Result panel 168 (unknown) (no date) (unknown) [facility] (no value) [facility] Result panel 169 (unknown) (no date) (unknown) [facility] (no value) [facility] Result panel 170 (unknown) (no date) (unknown) [facility] (no value) [facility] Result panel 171 (unknown) (no date) (unknown) [facility] (no value) [facility] Result panel 172 (unknown) (no date) (unknown) [facility] (no value) [facility] Result panel 173 (unknown) (no date) (unknown) [facility] (no value) [facility] Result panel 174 (unknown) (no date) (unknown) [facility] (no value) [facility] Result panel 175 (unknown) (no date) (unknown) [facility] (no value) [facility] Result panel 176 (unknown) (no date) (unknown) [facility] (no value) [facility] Result panel 177 (unknown) (no date) (unknown) [facility] (no value) [facility] Result panel 178 (unknown) (no date) (unknown) [facility] (no value) [facility] Result panel 179 (unknown) (no date) (unknown) [facility] (no value) [facility] Result panel 180 (unknown) (no date) (unknown) [facility] (no value) [facility] Result panel 181 (unknown) (no date) (unknown) [facility] (no value) [facility] Result panel 182 (unknown) (no date) (unknown) [facility] (no value) [facility] Result panel 183 (unknown) (no date) (unknown) [facility] (no value) [facility] Result panel 184 (unknown) (no date) (unknown) [facility] (no value) [facility] Result panel 185 (unknown) (no date) (unknown) [facility] (no value) [facility] Result panel 186 (unknown) (no date) (unknown) [facility] (no value) [facility] Result panel 187 (unknown) (no date) (unknown) [facility] (no value) [facility] Result panel 188 (unknown) (no date) (unknown) [facility] (no value) [facility] Result panel 189 (unknown) (no date) (unknown) [facility] (no value) [facility] Result panel 190 (unknown) (no date) (unknown) [facility] (no value) [facility] Result panel 191 (unknown) (no date) (unknown) [facility] (no value) [facility] Result panel 192 (unknown) (no date) (unknown) [facility] (no value) [facility] Result panel 193 (unknown) (no date) (unknown) [facility] (no value) [facility] Result panel 194 (unknown) (no date) (unknown) [facility] (no value) [facility] Result panel 195 (unknown) (no date) (unknown) [facility] (no value) [facility] Result panel 196 (unknown) (no date) (unknown) Walk-[facility] (no value) [facility] Result panel 197 (unknown) (no date) (unknown) [facility] (no value) [facility] Result panel 198 (unknown) (no date) (unknown) Walk-[facility] (no value) [facility] Result panel 199 (unknown) (no date) (unknown) [facility] (no value) [facility] Result panel 200 (unknown) (no date) (unknown) [facility] (no value) [facility] Result panel 201 (unknown) (no date) (unknown) [facility] (no value) [facility] Result panel 202 (unknown) (no date) (unknown) [facility] (no value) [facility] Result panel 203 (unknown) (no date) (unknown) [facility] (no value) [facility] Result panel 204 (unknown) (no date) (unknown) [facility] (no value) [facility] Result panel 205 (unknown) (no date) (unknown) [facility] (no value) [facility] Result panel 206 (unknown) (no date) (unknown) [facility] (no value) [facility] Result panel 207 (unknown) (no date) (unknown) [facility] (no value) [facility] Result panel 208 (unknown) (no date) (unknown) [facility] (no value) [facility] Result panel 209 (unknown) (no date) (unknown) [facility] (no value) [facility] Result panel 210 (unknown) (no date) (unknown) [facility] (no value) [facility] Result panel 211 (unknown) (no date) (unknown) [facility] (no value) [facility] Result panel 212 (unknown) (no date) (unknown) [facility] (no value) [facility] Result panel 213 (unknown) (no date) (unknown) [facility] (no value) [facility] Result panel 214 (unknown) (no date) (unknown) [facility] (no value) [facility] Result panel 215 (unknown) (no date) (unknown) [facility] (no value) [facility] Result panel 216 (unknown) (no date) (unknown) [facility] (no value) [facility] Result panel 217 (unknown) (no date) (unknown) Walk-[facility] (no value) [facility] Result panel 218 (unknown) (no date) (unknown) Walk-[facility] (no value) [facility] Result panel 219 (unknown) (no date) (unknown) Walk-[facility] (no value) [facility] Result panel 220 (unknown) (no date) (unknown) [facility] (no value) [facility] Result panel 221 (unknown) (no date) (unknown) [facility] (no value) [facility] Result panel 222 (unknown) (no date) (unknown) Walk-[facility] (no value) [facility] Result panel 223 (unknown) (no date) (unknown) Walk-[facility] (no value) [facility] Result panel 224 (unknown) (no date) (unknown) Walk-In (no value) [facility] Result panel 225 (unknown) (no date) (unknown) [facility] (no value) [facility] Result panel 226 (unknown) (no date) (unknown) Walk-In (no value) [facility] Result panel 227 (unknown) (no date) (unknown) Walk-In (no value) [facility] Result panel 228 (unknown) (no date) (unknown) Walk-[facility] (no value) [facility] Result panel 229 (unknown) (no date) (unknown) Walk-In (no value) [facility] Result panel 230 (unknown) (no date) (unknown) [facility] (no value) [facility] Result panel 231 (unknown) (no date) (unknown) Walk-In (no value) [facility] Result panel 232 (unknown) (no date) (unknown) [facility] (no value) [facility] Result panel 233 (unknown) (no date) (unknown) Walk-In (no value) [facility] Result panel 234 (unknown) (no date) (unknown) Walk-In (no value) [facility] Result panel 235 (unknown) (no date) (unknown) Walk-In (no value) [facility] Result panel 236 (unknown) (no date) (unknown) [facility] (no value) [facility] Result panel 237 (unknown) (no date) (unknown) Walk-In (no value) [facility] Result panel 238 (unknown) (no date) (unknown) [facility] (no value) [facility] Result panel 239 (unknown) (no date) (unknown) [facility]-In (no value) [facility] Result panel 240 (unknown) (no date) (unknown) Walk-In (no value) [facility] Result panel 241 (unknown) (no date) (unknown) Walk-In (no value) [facility] Social History No information. Vital Signs No information.
[2022-08-04 08:04] LABS: ALBUMIN 4.6 g/dL (3.2-5.5); ALBUMIN/GLOBULIN RATIO 1.5 (1.0-2.2); CALCIUM 10.2 mg/dL (8.5-10.3); CREATININE 1.3 mg/dL (0.6-1.2); TOTAL PROTEIN 7.7 g/dL (6.7-8.2)
[2022-08-04 08:24] LABS: GLUCOSE, URINE (UA) NEGATIVE (NEGATIVE); KETONES,URINE (UA) 15 mg/dL (NEGATIVE); LEUKOCYTE ESTERASE, URINE NEGATIVE (NEGATIVE); NITRITE,URINE NEGATIVE (NEGATIVE); OCCULT BLOOD,URINE LARGE (NEGATIVE); PROTEIN,URINE 30 mg/dL (NEGATIVE); UROBILINOGEN,URINE 0.2 (NORMAL) E.U./dL (NORMAL)
--- NOTE | 2022-08-04 08:27 | CT Report ---
PROCEDURE: ABDOMEN/PELVIS WO INDICATIONS: persistent abd pain; recent ureteral stone TECHNIQUE: Noncontrast 5 mm thick sections acquired from the diaphragms to the symphysis. 5 mm coronal and sagi ttal reformats were then performed. For radiation dose reduction, the following was used: automated exposure control, adjustment of mA and/or kV according to patient size. COMPARISON: 07/21/2022 FINDINGS: Image quality: Excellent. Lung bases and heart: Unremarkable. Liver: Unremarkable. Gallbladder and biliary tree: Dependently layering partially calcified gallstones. No gallbladder wal l thickening. Spleen: Occasional tiny calcifications suggesting healed granulomatous disease. Pancreas: Unremarkable. Adrenals: Low-density right adrenal thickening. No discrete nodule. Kidneys and ureters: 5 mm right lower pole intrarenal calculus. Mild right hydronephrosis and proxima l hydroureter. A 6 mm right mid ureteral calcification only slightly distal compared to the prior rafia dy. Left kidney and ureter are normal. Bowel and peritoneum: No bowel distension. No pathologic free fluid. Diverticulosis without evidence of diverticulitis. Lymph nodes: No central or retroperitoneal adenopathy. Vessels: Unremarkable. PELVIS Reproductive organs: Moderately enlarged prostate gland. Bladder: Partially distended. No intravesicular calculi. Lymph nodes: Unremarkable. Bones: No aggressive osseous abnormality. Other: None. IMPRESSION: Right mid ureteral calcification measuring 5 to 6 mm has only progressed a few centimeters distal com pared to the prior study. Slight increase in degree of right hydronephrosis. Urology consultation is recommended. Stable nonobstructing right lower pole calculus. Cholelithiasis. Reviewed by: Venessa Alford MD on 08/04/2022 8:26 AM PDT Approved by: Venessa Alford MD on 08/04/2022 8:26 AM PDT Station ID: [id number]
[2022-08-04 08:33] LABS: BILIRUBIN,URINE NEGATIVE (NEGATIVE); CLARITY,URINE CLEAR (CLEAR); ICTOTEST,URINE NEGATIVE
[2022-08-04 08:34] LABS: BACTERIA,URINE None Seen /HPF (None Seen); CRYSTALS,URINE 11-25 Ca Oxalate /LPF; SQUAMOUS EPITHELIAL CELL,UR RARE Squamous (<= Few)
[2022-08-04 09:37] VITALS: BP 136/77
== END 2022-08-04 09:44 | disposition home or self-care (01) ==
LOC: ED 06:54
DX: N13.2 Hydronephrosis with renal and ureteral calculous obstruction (principal)
CPT/HCPCS: 36415; 74176; 80053; 81001; 83690; 85025; 96374; 96375; 96376; 99284; J1170; 81003; 87086